=== PATIENT | female | born 1985 | race Two or more races ===

== ENCOUNTER 2020-11-16 10:29 | Outpatient (CLI) | payer OTHER | END 2020-11-16 10:38 | disposition home or self-care (01) | LOC: LAB 10:29 | PROVIDERS: ATTEND Internal Medicine Hematology & Oncology | DX: D64.89 Other specified anemias (principal); D68.0 Von Willebrand disease; D68.8 Other specified coagulation defects ==

== ENCOUNTER 2020-12-24 08:34 | Day surgery (SDC) | payer OTHER ==
[2020-12-24] MEDS ORDERED: MORGIDOX100 MG PO (19:23)
[2020-12-24] MEDS ORDERED: NAPR500T14 PO (19:23)
== END 2020-12-24 19:30 | disposition home or self-care (01) ==
LOC: CIR.AMB 08:34
PROVIDERS: ATTEND Obstetrics & Gynecology
DX: D25.0 Submucous leiomyoma of uterus (principal); N84.0 Polyp of corpus uteri; Z20.822 Contact with and (suspected) exposure to COVID-19